=== PATIENT | female | born 2005 | race American Indian/Alaskan Native ===

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

== ENCOUNTER 2023-05-23 03:14 | Emergency (ER) | payer SELFPAY ==
[2023-05-23] MEDS ORDERED: Benzocaine 20% Topical Spray UD ONE (03:34)
[2023-05-23] MEDS ORDERED: Benzocaine 20% Topical Spray UD MUCMEM ONE (03:57)
== END 2023-05-23 04:15 | disposition home or self-care (01) ==
LOC: JD.ED 03:14
DX: R09.A2 Foreign body sensation, throat (principal); J45.909 Unspecified asthma, uncomplicated; E66.9 Obesity, unspecified; Z68.32 Body mass index [BMI] 32.0-32.9, adult
CPT/HCPCS: 99283; A9270; 99282

== ENCOUNTER 2024-12-07 21:47 | Emergency (ER) | payer BC ==
[2024-12-07] MEDS: Sodium Chloride 0.9% 10 ML Syringe FLUSH PRN (23:43)
[2024-12-07 23:54] LABS: BASOPHILS ABSOLUTE AUTO 0.0 K/mm3 (0.0-0.2); BASOPHILS PERCENT AUTO 0.2 % (0.0-1.0); EOSINOPHILS ABSOLUTE AUTO 0.2 K/mm3 (0.0-0.4); EOSINOPHILS PERCENT AUTO 1.7 % (0.0-6.0); IMMATURE GRAN ABSOLUTE AUTO 0.08 K/mm3 (0.00-0.05); IMMATURE GRAN PERCENT AUTO 0.6 % (0.0-0.4); LYMPHOCYTES ABSOLUTE AUTO 2.9 K/mm3 (1.0-4.8); LYMPHOCYTES PERCENT AUTO 21.8 % (24.0-44.0); MEAN PLATELET VOLUME 9.0 fl (9.4-12.3); MONOCYTES ABSOLUTE AUTO 0.6 K/mm3 (0.0-0.8); MONOCYTES PERCENT AUTO 4.5 % (0.0-8.0); NEUTROPHILS ABSOLUTE AUTO 9.4 K/mm3 (1.8-7.7); NEUTROPHILS PERCENT AUTO 71.2 % (41.0-71.0); NRBC ABSOLUTE 0.00 (0.00-0.02); NRBC PERCENT 0.0 % (0.0-0.2); PLATELET COUNT,PLT 385 K/mm3 (150-400); RED BLOOD CELL COUNT 3.88 M/mm3 (4.10-5.30); WHITE BLOOD CELL COUNT,WBC 13.12 K/mm3 (3.9-11.3)
[2024-12-07 23:56] LABS: APPEARANCE,URINE CLEAR (Clear); GLUCOSE,URINE NEGATIVE (Negative); OCCULT BLOOD,URINE NEGATIVE (Negative)
[2024-12-08 00:20] LABS: EPITHELIAL CELLS,URINE 0-5 /hpf (0-5)
[2024-12-08 00:25] LABS: A/G RATIO 0.6 (1-2); ALANINE AMINOTRANSFERASE,ALT 19.0 U/L (14-59); ASPARTATE AMNIOTRANSFERASE,AST 13.0 U/L (15-37); BILIRUBIN TOTAL 0.4 mg/dL (0.2-1.0); BLOOD UREA NITROGEN,BUN 5.0 mg/dL (7-18); CARBON DIOXIDE,CO2 21.0 mEq/L (21-32); CHLORIDE,CL 103.0 mEq/L (98-107); CREATININE 0.4 mg/dL (0.55-1.02); EST CRCL DRUG DOSING (CG) 192.11 mL/min; ESTIMATED GFR 144.0 mL/min (>60); GLUCOSE RANDOM 95.0 mg/dL (70-99); POTASSIUM,K 3.2 mEq/L (3.5-5.1); PROTEIN TOTAL,TP 7.0 g/dl (6.4-8.2); SODIUM,NA 135.0 mEq/L (136-145)
[2024-12-08] MEDS: Potassium Bicarbonate/Cit Ac 20 MEQ Effervescent Tab PO ONE (01:27)
== END 2024-12-08 01:32 | disposition home or self-care (01) ==
LOC: JD.ED 21:47
DX: O99.891 Other specified diseases and conditions complicating pregnancy (principal); R10.30 Lower abdominal pain, unspecified; O99.282 Endocrine, nutritional and metabolic diseases complicating pregnancy, second trimester; E87.6 Hypokalemia; Z3A.20 20 weeks gestation of pregnancy; W01.0XXA Fall on same level from slipping, tripping and stumbling without subsequent striking against object, initial encounter; Y92.002 Bathroom of unspecified non-institutional (private) residence as the place of occurrence of the external cause
CPT/HCPCS: 36415; 76815; 80053; 81001; 85025; 99284; A9270; 76810; 76810-26; 99283